=== PATIENT | male | born 1980 | race Caucasian/White ===

== ENCOUNTER 2017-02-22 09:39 | Emergency (ER) | payer BC ==
[~2017-02-22] VITALS: Ht 190.5 cm; Wt 77.8 kg
[2017-02-22 09:42] VITALS: BP 165/83; PULSE 68; TEMP 36.5; O2SAT 96; Ht 190.5 cm; Wt 77.8 kg
[2017-02-22] MEDS ORDERED: KETOROLAC TROMETHAMINE 60 MG/2 ML VIAL IM STA (09:58)
[2017-02-22] MEDS ORDERED: DEXAMETHASONE SOD INJ 10 MG/ML VIAL IM ONE (10:00)
[2017-02-22] MEDS ORDERED: CYCL10TA6 PO (10:01)
[2017-02-22] MEDS ORDERED: METH4PAK PO (10:01)
[2017-02-22] MEDS ORDERED: OXYC1TAB3 PO (10:01)
[2017-02-22] MEDS ORDERED: ZNTT/150 PO (10:13)
--- NOTE | 2017-02-22 10:42 | EMERGENCY ROOM VISIT NOTE ---
History First contact with patient: 09:45 Chief Complaint: BACK PAIN Stated Complaint: SEVERE LOWER BACK PAIN History of Present Illness The patient is a 36 year old male who presents to the Emergency Room with complaints of persistent lower back pain radiating into the left buttock and around the front of the left hip. The patient reports that he injured his back 1 week ago on a row machine. The patient does not believe that he twisted his back. The patient has had persistent pain since that time. 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 He also has several young children at home, and is very "physical" with them, wrestling frequently. The patient denies any pain extending into the thigh or leg. He denies any bladder/bowel problems, saddle anesthesias or lower extremity weakness. The patient reports that he has had a prior history of lower back problems, and has undergone physical therapy at [facility]. The patient denies any recent trauma to his back. He rates his discomfort a 7 out of 10. He has been trying NSAIDs and Tylenol without relief. Review of Systems 10 system review was performed and was negative except for pertinent positives and negatives as indicated in history of present illness Past Medical/Surgical History Medical Problems: (1) No significant past medical history Surgical Problems: (1) No history of previous surgery Family History Unremarkable Social History Smoking Status: Never Smoker Alcohol Use: occasionally Marital Status: Housing Status: lives with family Occupation Status: employed Current/Historical Medications Scheduled Cyclobenzaprine Hcl (Flexeril), 10 MG PO TID Methylprednisolone (Medrol Dosepak), 0 PO DAILY Ranitidine (Zantac), 150 MG PO Q2D Scheduled PRN Oxycodone Ir (Roxicodone Ir), 1-2 TAB PO Q4H PRN for Pain Allergies Coded Allergies: No Known Allergies (Unverified , 02/22/17) Physical Exam Vital Signs Date Time Temp Pulse Resp B/P Pulse Ox O2 Delivery O2 Flow Rate FiO2 02/22/17 09:42 36.5 68 20 165/83 96 Room Air Physical Exam CONSTITUTIONAL: Healthy and well nourished. Alert and oriented X 3 with positive affect. Patient appears in mild distress. HEENT: Normocephalic, atraumatic. Pupils equal, round and reactive. NECK: Full active range of motion without discomfort. RESPIRATORY: Clear to auscultation bilaterally with no wheezing, crackles, rhonchi or stridor. CARDIOVASCULAR: Regular rate and rhythm with no murmurs, rubs or gallops. GASTROINTESTINAL: Bowel sounds present in all quadrants. Soft and nontender to palpation. MUSCULOSKELETAL: Examination shows focal tenderness to palpation and mild rigidity of the left lumbar paraspinous muscle. He also has mild tenderness to the left SI joint. Negative logroll. Negative sitting straight leg raise. Pedal pulses are intact. INTEGUMENTARY: No rash or other significant dermatologic conditions noted. NEUROLOGIC: No focal neurologic deficits noted. Lower extremity deep tendon reflexes are 2+ and symmetric bilaterally. Medical Decision & Procedures Medications Administered Medications (Trade) Dose Ordered Sig/Kaylah Route Start Time Stop Time Status Last Admin Dose Admin Ketorolac Tromethamine (Toradol Inj) 60 mg NOW STAT IM 02/22/17 09:58 02/22/17 09:59 DC 02/22/17 10:09 60 MG Dexamethasone Sodium Phosphate (Decadron Inj) 10 mg NOW ONCE IM 02/22/17 10:00 02/22/17 10:01 DC 02/22/17 10:09 10 MG ED Course Patient history and physical exam were performed. Nurse's notes were reviewed. Vital signs were reviewed and were normal. The patient was administered Toradol 60 mg and Decadron 10 mg IM. The patient was provided prescriptions for a Medrol Dosepak, Flexeril and OxyIR 5 mg. He was encouraged to alternate ibuprofen and Tylenol for baseline pain relief. Encourage the patient to contact [facility] for further reevaluation and management, which will likely involve some physical therapy. The patient was instructed to return to the emergency department for any progressively worsening symptoms. The patient was happy with plan of care, voiced understanding of all discharge instructions, and rated his pain a 5 out of 10 at the conclusion of my exam. Medical Decision Impression Primary Impression: Left lumbar radiculitis Departure Information Dispostion Home / Self-Care Prescriptions Methylprednisolone (MEDROL DOSEPAK) 4 Mg Sj 0 PO DAILY, #1 PKT Prov: Micah Salcedo PA 02/22/17 Oxycodone Ir (Roxicodone Ir) 5 Mg Tab 1-2 TAB PO Q4H Y for Pain, #15 TAB For Initial Treatment Prov: Micah Salcedo PA 02/22/17 Cyclobenzaprine Hcl (FLEXERIL) 10 Mg Tab 10 MG PO TID for spasm, #15 TAB Prov: Micah Salcedo PA 02/22/17 Forms HOME CARE DOCUMENTATION FORM, IMPORTANT VISIT INFORMATION Patient Instructions [facility] Additional Instructions Intermittently apply heat to back. Avoid heavy lifting or sitting for long periods of time. Ibuprofen 800 mg and/or Tylenol 1000 mg every 8 hours. You may also alternate these medications for more effective pain relief: Ibuprofen --4 HRS--> Tylenol --4 HRS--> ibuprofen --4 HRS--> Tylenol .... Take Medrol Dosepak as prescribed, next dose tomorrow morning. Take Flexeril as needed for muscle tightness/spasm. OxyIR if needed for worse pain. Do not drink alcohol or drive while taking Flexeril or OxyIR. Suggest follow-up with [facility] for further reevaluation - call for an appointment.
== END 2017-02-22 10:50 | disposition home or self-care (01) ==
LOC: C.EDB 09:40
DX: M54.16 Radiculopathy, lumbar region (principal)

== ENCOUNTER 2023-05-26 17:23 | Observation (INO) ==
[2023-05-26] MEDS ORDERED: SODIUM CHLORIDE 0.9% 1000ML 1,000 ML IV STA (17:41)
[2023-05-26] MEDS ORDERED: SODIUM CHLORIDE 0.9% 1000ML 1,000 ML IV ONE (17:41)
[2023-05-26] MEDS ORDERED: IOVERSOL 350 MG 125mL Prefilled Syringe IV ONE (17:54)
[2023-05-26] MEDS ORDERED: ONDANSETRON INJ 2 MG/ML 2 ML VIAL IV STA (17:57)
[2023-05-26] MEDS ORDERED: LORazepam 2 MG/1 ML VIAL IV STA (17:57)
[2023-05-26] MEDS ORDERED: LORazepam 2 MG/1 ML VIAL ONE (18:00)
[2023-05-26] MEDS ORDERED: ONDANSETRON INJ 2 MG/ML 2 ML VIAL ONE (18:00)
[2023-05-26 18:01] LABS: iSTAT Hemoglobin 12.9 g/dl (14.0-18.0); iSTAT Ionized Calcium 1.14 mmol/l (1.12-1.32); iSTAT Potassium 3.4 mmol/L (3.3-5.0)
--- NOTE | 2023-05-26 18:10 | XRay Report ---
XR chest 1V portable HISTORY: Chest pain, nonspecific COMPARISON: Chest 08/09/2020. FINDINGS: The lungs are clear. Cardiac silhouette is normal in size. No pleural effusions. No pneumot horax. IMPRESSION: No acute process. ACT 112: Negative or not required by law. Electronically signed by: Todd Mullins M.D. 05/26/2023 6:08 PM
[2023-05-26 18:13] LABS: Hematocrit (blood only) 37.1 % (42.0-52.0); Hemoglobin 13.5 g/dl (14.0-18.0); Mean Corpuscular Hemoglobin 33.2 pg (25.0-34.0); Mean Corpuscular Hgb Conc 36.4 g/dL (32.0-36.0); Mean Corpuscular Volume 91.2 fL (80.0-100.0); Mean Platelet Volume 10.2 fL (9.4-12.4); Platelet Count 253 K/uL (130-400); RDW Coefficient of Variation 12.9 % (11.5-14.5); RDW Standard Deviation 42.5 fL (36.4-46.3); Red Blood Count 4.07 M/uL (4.70-6.10); White Blood Count 5.85 K/ul (4.8-10.8)
--- NOTE | 2023-05-26 18:16 | CT Scan Report ---
HEAD CT NONCONTRAST CT DOSE: HISTORY: syncope urinary incontinence TECHNIQUE: Multiaxial CT images of the head were performed without the use of intravenous contrast. A utomated exposure control was utilized for this study. A dose lowering technique was utilized adheri ng to the principles of ALARA. Comparison: None. Findings: The paranasal sinuses and mastoid air cells are clear. The calvarium and skull base are int act. The ventricles and sulci are within normal limits. There is no mass, hematoma, midline shift, or acute infarct. Impression: No acute intracranial abnormality. ACT 112: Negative or not required by law. Electronically signed by: Todd Mullins M.D. 05/26/2023 6:15 PM
--- NOTE | 2023-05-26 18:22 | CT Scan Report ---
CHEST CTA for AORTIC DISSECTION CT DOSE: HISTORY: ro dissection chest pain radiating to back TECHNIQUE: Multiaxial CT images of the chest were performed both before and after the intravenous adm inistration of contrast to evaluate the aorta. 3D/MIP images were also obtained. Sagittal and coronal reformations were also reviewed. A dose lowering technique was utilized adhering to the principles of ALARA. COMPARISON STUDY: None. FINDINGS: Noncontrast imaging through the chest shows no evidence for an intramural hematoma within t he thoracic aorta. The thoracic aorta is normal and course and caliber with no evidence for a dissect ion. The central pulmonary arteries are patent. The thyroid gland enhances normally. Normal esophagus . No mediastinal hematoma. No mediastinal or hilar lymphadenopathy. No pleural or pericardial effusio ns. No acute fractures identified. The central airways are patent. No pneumothorax. The lungs are marielena ar. The abdominal structures will be reported on the same day abdomen and pelvis CT. IMPRESSION: No evidence for an aortic dissection. ACT 112: Negative or not required by law. Electronically signed by: Todd Mullins M.D. 05/26/2023 6:20 PM
[2023-05-26 18:25] LABS: Albumin Globulin Ratio 1.9 (0.9-2); Albumin Level 4.6 gm/dl (3.4-5.0); BUN Creatinine Ratio 14.6 (10-20); Calcium 9.1 mg/dl (8.6-10.3); Creatinine Clr Calc Pharmacy 117.9 ml/min; Est GFR (African American) 122.2 ml/min; Est GFR (Non-African American) 105.5 ml/min; Globulin 2.4 gm/dl (2.5-4.0); Potassium 3.5 mmol/L (3.5-5.1)
--- NOTE | 2023-05-26 18:29 | CT Scan Report ---
CT angio abdomen pelvis w con CT DOSE: 2606.89 mGy.cm CLINICAL HISTORY: ro dissection chest pain and abdominal pain radiating to back TECHNIQUE: Multiaxial CT images of the abdomen and pelvis were performed following the intravenous ad ministration of 115 cc of Optiray 350 to evaluate the major arterial structures. 3-D/MIP images with sagittal coronal reformations were performed at the workstation by the radiologist for the CTA portio n of the examination. A dose lowering technique was utilized adhering to the principles of ALARA. COMPARISON STUDY: None. FINDINGS: CTA: No evidence for an aortic dissection or aneurysm. The iliac arteries and visualized femoral [place] deann are widely patent. The celiac, superior mesenteric, inferior mesenteric, and renal arteries are widely patent. There are 2 right renal arteries. Incidental note is made of a replaced right hepatic artery extending from the superior mesenteric artery. This is considered to be a normal variant. CT: No pneumoperitoneum. No pneumatosis. No acute fractures identified. There is a 6 mm hypervascular focus within the right hepatic lobe inferiorly on image 217. This is technically too small to charac terize but favors a flash filling hemangioma. The gallbladder, pancreas, spleen, adrenal glands, and kidneys are unremarkable. No hydronephrosis. No retroperitoneal lymphadenopathy. No pelvic lymphadeno vinny or pelvic free fluid. The bladder is unremarkable. No bowel wall thickening or obstruction. Nor mal appendix. IMPRESSION: No evidence for an abdominal aortic dissection or aneurysm. ACT 112: Negative or not required by law. Electronically signed by: Todd Mullins M.D. 05/26/2023 6:27 PM
[2023-05-26 18:31] LABS: Troponin I High Sensitivity 3.9 pg/ml (0-20)
[2023-05-26 18:34] LABS: INR 1.1 (0.9-1.1); Partial Thromboplastin Ratio 0.8; Partial Thromboplastin Time 22.8 Seconds (21.0-31.0); Prothrombin Time 12.2 Seconds (9.0-12.0)
[2023-05-26 19:04] LABS: Basophils # (auto) 0.07 K/uL (0-0.2); Basophils % (auto) 1.2 %; Eosinophils % (auto) 1.7 %; Immature Granulocytes # (auto) 0.01 K/uL (0.01-0.20); Immature Granulocytes % (auto) 0.2 %; Lymphocytes # (auto) 3.18 K/uL (1.2-3.4); Lymphocytes % (auto) 54.4 %; Monocytes # (auto) 0.47 K/uL (0.11-0.59); Neutrophils # (auto) 2.02 K/uL (1.40-6.50); Neutrophils % (auto) 34.5 %
--- NOTE | 2023-05-26 19:04 | Emergency Department Note ---
History of Present Illness General Chief complaint: Syncope Stated complaint: LOSS CONSCIOUSNESS,DILATED PUPILS Time Seen by Provider: 05/26/23 17:35 History of Present Illness Provider complaint: Chest pain syncope Onset (ago): hour(s) less than 1 Maximum Pain Intensity: 5 42-year-old male presents emergency department for chest pain and syncope. Patient reports he had a very stressful day at work today and states he was riding his bike home when he suddenly felt left sided chest pain that was radiating to his back. He reported was very sharp. Patient reports he got off of his bike and called his to come pick him up. is at bedside and stated when she got the patient into the car his eyes became dilated and leaned back and he was unresponsive. She reports he was very pale. She reports he urinated on himself. Patient reports no history of seizures. No other medical problems. No drugs or alcohol. Home Medications Medication Instructions Recorded Confirmed Type multivitamin 1 tab PO DAILY 08/09/20 05/26/23 History Allergies Allergy/AdvReac Type Severity Reaction Status Date / Time No Known Allergies Allergy Verified 05/26/23 18:37 Past Med/Surg History Medical History Acid reflux Bronchospastic airway disease Lipoma Spermatocele Surgical History No pertinent past surgical history Family History Father Unknown family medical history Mother Unknown family medical history Grandfather (Paternal) Colorectal cancer Family/Other No problems noted. Aunt Breast cancer Uncle Testicular cancer Grandfather Bladder cancer Social History Smoking Status: Never smoker Hx Alcohol Use: Yes Hx Substance Use: No Preferred Language: Welsh marital status: Current Living Situation: Family Current Living Situation Comment: 3 children current occupational status: employed current occupation: [employer] works in [employer] Feels Safe at Home: Yes Childhood Exposure to Second-Hand Smoke: No Dental Care, Regularly: Yes Physical Activity Frequency: 5-6 Times per Week Physical Exam Vital Signs Vital Signs - 24 hr 05/26/23 17:25 05/26/23 17:46 Temperature 36.6 C Temperature Source Oral Pulse Rate 70 70 Pulse Rhythm Regular Pulse Strength Normal Respiratory Rate 20 Respiratory Effort / Characteristics Non-Labored Spontaneous Respiratory Depth Normal Respiratory Pattern Regular Blood Pressure 123/69 Blood Pressure Mean 87 Blood Pressure Position Sitting Pulse Oximetry 98 Oxygen Delivery Method Room Air Sepsis Recent Fever Within 48 Hours No Sepsis New/Unexplained Change in Mental Status No Sepsis Action Taken by Nursing No Action Required Physical Exam GENERAL: Patient in urine soaked pants. HENT: Exam performed. - Head: Normocephalic and atraumatic. - Right Ear: External ear normal. No mastoid erythema - Left Ear: External ear normal. No mastoid erythema - Mouth/Throat: The oropharynx is clear and moist. No trismus in the jaw. No dental abscesses or uvula swelling. No oropharyngeal exudate or tonsillar abscesses. EYES: Conjunctivae and EOM are normal. Pupils are equal, round, and reactive to light. Right eye exhibits no discharge. Left eye exhibits no discharge. No scleral icterus. NECK: Normal range of motion. Neck supple. No JVD present. No spinous process tenderness present. No carotid bruit present. No rigidity. No tracheal deviation and normal range of motion present. No Brudzinski's sign and no Kernig's sign noted. CV: Normal rate, regular rhythm, normal heart sounds and intact distal pulses. There is no peripheral edema. Palpable radial pulses bue. PULM/CHEST: Effort normal and breath sounds normal. No respiratory distress. No stridor. He has no wheezes. He has no rales. - Chest Wall: He exhibits no tenderness. ABD: The abdomen is soft.There is no tenderness. There is no rebound, no guarding MUSC/SKEL: Normal range of motion. There is no peripheral edema, tenderness or deformity. NEURO: He is alert and oriented to person, place, and time. He has normal strength. No cranial nerve deficit or sensory deficit. Coordination and gait normal. GCS eye subscore is 4. GCS verbal subscore is 5. GCS motor subscore is 6. Cerebellar tests wnl. Course Course 173: The patient was evaluated in room C4. A complete history and physical exam was performed Cardiac monitoring: An order was placed for continuous cardiac monitoring. The monitor shows a rate of 70 with sinus rhythm interpreted by me 1933: Vital signs stable. Labs and imaging within normal limits. Patient states he feels much better after receiving IV Zofran and IV Ativan. Discussed the case with Dr. Singer on-call neurology. Expressed my concerns about exertional syncope versus seizure. He states he thinks this more syncope and recommends no antiepileptics at this time. Patient will be brought into the [facility] hospitalist team for observation and evaluation by cardiology and neurology. Dr. Covarrubias is aware of the patient and will evaluate the patient for admission. Administered Medications Discontinued Medications Sodium Chloride (Nss 1000ml) 1,000 mls @ 999 mls/hr IV .Q1H1M STA Stop: 05/26/23 18:41 Last Admin: 05/26/23 19:15 Dose: 999 mls/hr Documented By: SOLA Sodium Chloride (Nss 1000ml) 1,000 mls @ 999 mls/hr IV .Q1H1M ONE Stop: 05/26/23 18:41 Last Admin: 05/26/23 19:16 Dose: 999 mls/hr Documented By: SOLA Ioversol (Ioversol 350 Mg 125ml Prefilled Syringe) 115 ml IV ONCE ONE Stop: 05/26/23 17:55 Last Admin: 05/26/23 17:54 Dose: 115 ml Documented By: JAYCEE Lorazepam (Lorazepam 2 Mg/1 Ml Vial) 1 mg IV NOW STA Stop: 05/26/23 17:58 Last Admin: 05/26/23 18:16 Dose: 1 mg Documented By: SOLA Lorazepam (Lorazepam 2 Mg/1 Ml Vial) Confirm Administered Dose 2 mg .ROUTE .STK- MED ONE Stop: 05/26/23 18:01 Last Admin: 05/26/23 19:14 Dose: Not Given Documented By: SOLA Ondansetron HCl (Ondansetron Inj 2 Mg/Ml 2 Ml Vial) 4 mg IV NOW STA Stop: 05/26/23 17:58 Last Admin: 05/26/23 18:16 Dose: 4 mg Documented By: SOLA Ondansetron HCl (Ondansetron Inj 2 Mg/Ml 2 Ml Vial) Confirm Administered Dose 4 mg .ROUTE .STK-MED ONE Stop: 05/26/23 18:01 Last Admin: 05/26/23 19:15 Dose: Not Given Documented By: SOLA Medical Decision Making Laboratory Data Attestation: I reviewed the patient's lab results. 05/26/23 17:33 05/26/23 17:33 Lab Results 05/26/23 05/26/23 05/26/23 Range/Units 17:33 17:33 17:33 WBC 5.85 (4.8-10.8) K/ul RBC 4.07 L (4.70-6.10) M/uL Hgb 13.5 L (14.0-18.0) g/dl POC Hgb (14.0-18.0) g/dl Hct 37.1 L (42.0-52.0) % POC Hct (42-52) % MCV 91.2 (80.0-100.0) fL MCH 33.2 (25.0-34.0) pg MCHC 36.4 H (32.0-36.0) g/dL RDW Std Deviation 42.5 (36.4-46.3) fL RDW Coeff of [place] 12.9 (11.5-14.5) % Plt Count 253 (130-400) K/uL MPV 10.2 (9.4-12.4) fL Immature Gran % (Auto) 0.2 % Neut % (Auto) 34.5 % Lymph % (Auto) 54.4 % [place] % (Auto) 8.0 % Eos % (Auto) 1.7 % Baso % (Auto) 1.2 % Neut # (Auto) 2.02 (1.40-6.50) K/uL Lymph # (Auto) 3.18 (1.2-3.4) K/uL [place] # (Auto) 0.47 (0.11-0.59) K/uL Eos # (Auto) 0.10 (0-0.50) K/uL Baso # (Auto) 0.07 (0-0.2) K/uL Immature Gran # (Auto) 0.01 (0.01-0.20) K/uL PT 12.2 H (9.0-12.0) Seconds INR 1.1 (0.9-1.1) APTT 22.8 (21.0-31.0) Seconds PTT Ratio 0.8 POC Sodium (135-144) mmol/L Sodium 137 (136-145) mmol/L POC Potassium (3.3-5.0) mmol/L Potassium 3.5 (3.5-5.1) mmol/L POC Chloride (101-112) mmol/L Chloride 104 (98-107) mmol/L Carbon Dioxide 26 (21-32) mmol/L POC Total CO2 (24-31) mmol/L Anion Gap 7 (3-11) POC Anion Gap (16-25) mmol/L POC BUN (7-18) mg/dl BUN 13 (6-23) mg/dl Creatinine 0.89 (0.6-1.4) mg/dl POC Creatinine (0.6-1.3) mg/dl Est Cr Clr Drug Dosing 117.9 ml/min Est GFR ( Amer) 122.2 ml/min Est GFR (Non-Af Amer) 105.5 ml/min BUN/Creatinine Ratio 14.6 (10-20) Glucose 103 H (70-99(Fasting)) mg/dl POC Glucose (70-99) mg/dl POC Glucose (other) (70-99) mg/dl Calcium 9.1 (8.6-10.3) mg/dl POC Ioniz Calcium Adrian (1.12-1.32) mmol/l Total Bilirubin 1.0 (0.2-1.0) mg/dl AST 26 (13-39) U/L ALT 19 (7-52) U/L Alkaline Phosphatase 42 (34-104) U/L Troponin I High Sens 3.9 (0-20) pg/ml Total Protein 7.0 (6.0-8.3) gm/dl Albumin 4.6 (3.4-5.0) gm/dl Globulin 2.4 L (2.5-4.0) gm/dl Albumin/Globulin Ratio 1.9 (0.9-2) Lipase 25 (11-82) U/L 05/26/23 05/26/23 Range/Units 17:33 17:45 WBC (4.8-10.8) K/ul RBC (4.70-6.10) M/uL Hgb (14.0-18.0) g/dl POC Hgb 12.9 L (14.0-18.0) g/dl Hct (42.0-52.0) % POC Hct 38 L (42-52) % MCV (80.0-100.0) fL MCH (25.0-34.0) pg MCHC (32.0-36.0) g/dL RDW Std Deviation (36.4-46.3) fL RDW Coeff of [place] (11.5-14.5) % Plt Count (130-400) K/uL MPV (9.4-12.4) fL Immature Gran % (Auto) % Neut % (Auto) % Lymph % (Auto) % [place] % (Auto) % Eos % (Auto) % Baso % (Auto) % Neut # (Auto) (1.40-6.50) K/uL Lymph # (Auto) (1.2-3.4) K/uL [place] # (Auto) (0.11-0.59) K/uL Eos # (Auto) (0-0.50) K/uL Baso # (Auto) (0-0.2) K/uL Immature Gran # (Auto) (0.01-0.20) K/uL PT (9.0-12.0) Seconds INR (0.9-1.1) APTT (21.0-31.0) Seconds PTT Ratio POC Sodium 139 (135-144) mmol/L Sodium (136-145) mmol/L POC Potassium 3.4 (3.3-5.0) mmol/L Potassium (3.5-5.1) mmol/L POC Chloride 102 (101-112) mmol/L Chloride (98-107) mmol/L Carbon Dioxide (21-32) mmol/L POC Total CO2 24 (24-31) mmol/L Anion Gap (3-11) POC Anion Gap 16.0 (16-25) mmol/L POC BUN 12 (7-18) mg/dl BUN (6-23) mg/dl Creatinine (0.6-1.4) mg/dl POC Creatinine 1.0 (0.6-1.3) mg/dl Est Cr Clr Drug Dosing ml/min Est GFR ( Amer) ml/min Est GFR (Non-Af Amer) ml/min BUN/Creatinine Ratio (10-20) Glucose (70-99(Fasting)) mg/dl POC Glucose 109 H (70-99) mg/dl POC Glucose (other) 104 H (70-99) mg/dl Calcium (8.6-10.3) mg/dl POC Ioniz Calcium Adrian 1.14 (1.12-1.32) mmol/l Total Bilirubin (0.2-1.0) mg/dl AST (13-39) U/L ALT (7-52) U/L Alkaline Phosphatase (34-104) U/L Troponin I High Sens (0-20) pg/ml Total Protein (6.0-8.3) gm/dl Albumin (3.4-5.0) gm/dl Globulin (2.5-4.0) gm/dl Albumin/Globulin Ratio (0.9-2) Lipase (11-82) U/L Imaging Data Attestation: I personally reviewed and interpreted this imaging study as follows: My Impression: Chest x-ray: Chest x-ray negative. Airway clear. No pneumothorax. No consolidation. No cardiomegaly or cephalization.. No free air under the diaphragm. No fractures of the skeletal structures. CT head: No ICH CTA chest abdomen pelvis: No dissection. Radiologist's Impression: Chest X-Ray 05/26/23 17:41 XR chest 1V portable HISTORY: Chest pain, nonspecific COMPARISON: Chest 08/09/2020. FINDINGS: The lungs are clear. Cardiac silhouette is normal in size. No pleural effusions. No pneumothorax. IMPRESSION: No acute process. ACT 112: Negative or not required by law. Electronically signed by: Todd Mullins M.D. 05/26/2023 6:08 PM Abdomen/Pelvis CTA 05/26/23 17:42 CT angio abdomen pelvis w con CT DOSE: 2606.89 mGy.cm CLINICAL HISTORY: ro dissection chest pain and abdominal pain radiating to back TECHNIQUE: Multiaxial CT images of the abdomen and pelvis were performed following the intravenous administration of 115 cc of Optiray 350 to evaluate the major arterial structures. 3-D/MIP images with sagittal coronal reformations were performed at the workstation by the radiologist for the CTA portion of the examination. A dose lowering technique was utilized adhering to the principles of ALARA. COMPARISON STUDY: None. FINDINGS: CTA: No evidence for an aortic dissection or aneurysm. The iliac arteries and visualized femoral arteries are widely patent. The celiac, superior mesenteric, inferior mesenteric, and renal arteries are widely patent. There are 2 right renal arteries. Incidental note is made of a replaced right hepatic artery extending from the superior mesenteric artery. This is considered to be a normal variant. CT: No pneumoperitoneum. No pneumatosis. No acute fractures identified. There is a 6 mm hypervascular focus within the right hepatic lobe inferiorly on image 217. This is technically too small to characterize but favors a flash filling hemangioma. The gallbladder, pancreas, spleen, adrenal glands, and kidneys are unremarkable. No hydronephrosis. No retroperitoneal lymphadenopathy. No pelvic lymphadenopathy or pelvic free fluid. The bladder is unremarkable. No bowel wall thickening or obstruction. Normal appendix. IMPRESSION: No evidence for an abdominal aortic dissection or aneurysm. ACT 112: Negative or not required by law. Electronically signed by: Todd Mullins M.D. 05/26/2023 6:27 PM Chest CTA 05/26/23 17:42 CHEST CTA for AORTIC DISSECTION CT DOSE: HISTORY: ro dissection chest pain radiating to back TECHNIQUE: Multiaxial CT images of the chest were performed both before and after the intravenous administration of contrast to evaluate the aorta. 3D/MIP images were also obtained. Sagittal and coronal reformations were also reviewed. A dose lowering technique was utilized adhering to the principles of ALARA. COMPARISON STUDY: None. FINDINGS: Noncontrast imaging through the chest shows no evidence for an intramural hematoma within the thoracic aorta. The thoracic aorta is normal and course and caliber with no evidence for a dissection. The central pulmonary arteries are patent. The thyroid gland enhances normally. Normal esophagus. No mediastinal hematoma. No mediastinal or hilar lymphadenopathy. No pleural or pericardial effusions. No acute fractures identified. The central airways are patent. No pneumothorax. The lungs are clear. The abdominal structures will be reported on the same day abdomen and pelvis CT. IMPRESSION: No evidence for an aortic dissection. ACT 112: Negative or not required by law. Electronically signed by: Todd Mullnis M.D. 05/26/2023 6:[address] 05/26/23 17:[address] DOSE: HISTORY: syncope urinary incontinence TECHNIQUE: Multiaxial CT images of the head were performed without the use of intravenous contrast. Automated exposure control was utilized for this study. A dose lowering technique was utilized adhering to the principles of ALARA. Comparison: None. Findings: The paranasal sinuses and mastoid air cells are clear. The calvarium and skull base are intact. The ventricles and sulci are within normal limits. There is no mass, hematoma, midline shift, or acute infarct. Impression: No acute intracranial abnormality. ACT 112: Negative or not required by law. Electronically signed by: Todd Mullins M.D. 05/26/2023 6:15 PM ECG Data Attestation: I personally reviewed and interpreted this ECG as follows: Additional Comments: EKG 1 at 1735: Sinus rhythm with rate of 73. MN QRS and QTc intervals within normal limits. No ST elevation or ST depression. EKG #2 at 1749: Sinus rhythm with a rate of 63. MN QRS and QTc interval's are within normal limits. No ST elevation or ST depression. EKG #3 at 1812: Sinus rhythm with a sinus arrhythmia with a rate of 62. MN QRS and QTc intervals within normal limits. No ST elevation or ST depression MDM Narrative 1735: The patient was evaluated in room C4. A complete history and physical exam was performed Cardiac monitoring: An order was placed for continuous cardiac monitoring. The monitor shows a rate of 70 with sinus rhythm interpreted by me 1933: Vital signs stable. Labs and imaging within normal limits. Patient states he feels much better after receiving IV Zofran and IV Ativan. Discussed the case with Dr. Singer on-call neurology. Expressed my concerns about exertiona l syncope versus seizure. He states he thinks this more syncope and recommends no antiepileptics at this time. Patient will be brought into the [facility] hospitalist team for observation and evaluation by cardiology and neurology. Dr. Covarrubias is aware of the patient and will evaluate the patient for admission. Impression & Plan Syncope, Seizure-like activity Discharge Plan Visit Data Chief Complaint: Syncope Stated Complaint: LOSS CONSCIOUSNESS,DILATED PUPILS ED Provider: Jayme Mckinley Discharge Problem: Syncope, Seizure-like activity Patient Disposition: Being Evaluated by Hospitalist Forms Stand Alone Forms: My [facility] Prescriptions Prescriptions: No Action multivitamin Tablet 1 tab PO DAILY Referrals Referrals: Silvia Padgett MD [Primary Care Provider] -
--- NOTE | 2023-05-26 19:35 | History & Physical Report ---
Date of Service May 26, 2023 Assessment & Plan (1) Syncope: Plan: Patient is a 42-year-old male with no significant past medical history who presents to the hospital for syncopal episode. Initial test are negative at time of admission. ED provider spoke to neurology who states that unlikely to be seizure like activity. Etiology of syncopal episode most likely either vasovagal/anxiety versus cardiac abnormality such as HOCM, bicuspid aortic valve, arrhythmia. Patient unsure of exact family history of cardiac issues though states that his father "dropped " from a heart issue in his 40s/50s. We will hold off on neurology consult at this time, may consider consult in the future though unlikely to be related to seizures. Chest x-ray, CT abdomen pelvis, CTA chest, head CT, CBC, CMP, and lipase all negative. UA and drug profile urine pending at time of admission. Troponin negative x1, will repeat in 6 hours. Status post 2 L NSS in ED. received 1 mg Ativan in the ED which helped. TTE ordered Will monitor on telemetry If tests all negative, consider event monitor at time of discharge Plan Fluids: Received 2 L NSS in ED, will hold further fluids at this time Nutrition: Heart Code status: full code DVT ppx: none Consults: None Dispo: PCU/telemetry Thank you for allowing me to participate in the care of your patient. -Dr. Pieter Peña PGY2 History of Present Illness Chief Complaint: Syncopal episode Primary Care Provider: Silvia Padgett MD Patient is a 42-year-old male without any significant past medical history who presents to the hospital for syncopal episode that occurred earlier this afternoon. Patient states that he had a very stressful day at work and was worried that he might be fired. After work he was going for a bike ride and started to have back pain that radiated to his chest on his left side. Patient states that he then became dizzy and felt like he was going to pass out. He was able to stop biking and called his to come pick him up. When his arrived patient entered the front seat and then had a syncopal episode where he lost consciousness for 15 seconds. Patient did not have any shaking or movement with loss of consciousness. After he regained consciousness he felt calm without any significant postictal state. does report that the patient was a little confused until getting to the emergency room. He did urinate himself during this loss of consciousness. Patient states that he has never had this in the past but has had presyncopal episodes that improved with putting his head in between his legs. Patient is unsure of his exact family medical history but states people in his family have had to have valve replacements or other heart surgeries and that his grandfather suddenly of a heart condition in his 40s/50s. In the ED: Chest x-ray negative, abdomen and pelvis CTA negative, chest CTA negative, head CT negative, CBC benign, CMP benign, lipase negative, negative troponin x1. EKG showed normal sinus rhythm with sinus arrhythmia unchanged from previous EKG in 2019. VSS stable. Given 2 L NSS and 1 mg Ativan which improved symptoms. Allergies Allergy/AdvReac Type Severity Reaction Status Date / Time No Known Allergies Allergy Verified 05/26/23 18:37 Home Medications Medication Instructions Recorded Confirmed Type multivitamin 1 tab PO DAILY 08/09/20 05/26/23 History Past Med/Surg History Medical History Acid reflux Bronchospastic airway disease Lipoma Spermatocele Surgical History No pertinent past surgical history Family History Father Unknown family medical history Mother Unknown family medical history Grandfather (Paternal) Colorectal cancer Family/Other No problems noted. 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 Beliefs That Will Affect Care: None marital status: Current Living Situation: Parent and Family Current Living Situation Comment: 3 children current occupational status: employed current occupation: [employer] works in [employer] Other Information That Helps Us Care for You: No Feels Safe at Home: Yes Safety Concerns: Feels Safe At This Time Childhood Exposure to Second-Hand Smoke: No Dental Care, Regularly: Yes Physical Activity Frequency: 5-6 Times per Week Assistive Devices: None Review of Systems Review of Systems: All systems reviewed & are unremarkable except as noted in Subjective Physical Exam Physical Exam: Constitutional: well-appearing, no acute distress HEENT: NCAT, no conjunctival injection CV: regular rhythm, no murmur appreciated, extremities well-perfused, no LE edema Resp: CTABL, no wheezes/rales/rhonchi appreciated, no increased work of breathing GI: soft, nondistended, nontender, BS normoactive MSK: no gross deformities appreciated Skin: warm, dry, no rash appreciated Neuro: alert, oriented, no focal neurologic deficit appreciated Results & Data Results & Data Vital Signs (Past 12 Hours) Vital Signs Temp Pulse Resp BP Pulse Ox O2 Del Method 05/26/23 17:46 70 05/26/23 17:25 36.6 C 70 20 123/69 98 Room Air Supervising Physician Co-Signing Physician Notes I personally examined the patient and verified all lowe points of history and exam, discussed case, and agree with decision making with Dr. Peña with the following additions/exceptions: This patient is a 42-year-old male with no significant past medical history who presented with a syncopal episode. He had a stressful day at work and was biking home like he does 2 or 3 times a week for about [address] when he began having severe sharp stabbing pains in the suprascapular region that radiated down to the left anterior chest wall. He got off his bike and began to feel lightheaded and started to feel like he was not thinking clearly. He was able to call his who came with her car. He continued to feel lightheaded this whole time and after getting in the car then he passed out for about 15 to 20 seconds. His reports he had incontinence to urine but no shaking or tremors. He did wake up then on his own and still seemed slightly confused until he got to the ER. He has never passed out before, but reports several episodes in the past of lightheadedness that improved with time. The pain in his left shoulder and chest is completely resolved. In the ER, he had head CT, CT angiogram the chest abdomen pelvis, chest x-ray all negative, troponin negative, labs negative except mild anemia. ECGs with normal sinus rhythm with sinus arrhythmia and rate of 62 History and ROS reviewed otherwise as above Vitals reviewed Gen: AAOx3, NAD HEENT: Anicteric sclerae, EOMI CV: RRR no mgr nl S1S2 Pulm: CTAB no wcr Abd: +BS soft NT ND no masses or hernias Ext: No edema, 2+ DP pulses, left suprascapular region without tenderness to palpation Skin: No rashes, warm/dry Neuro: Full strength throughout CBC, CMP, troponin reviewed 42-year-old male here with what is likely vasovagal syncope as a response to the muscle cramp in his left shoulder. CT angiogram chest ruled out aortic dissection as a cause of the pain and is now resolved on its own. ECG is without ischemia and troponin negative-serial troponins ordered -Check echocardiogram to rule out valvular disease or HOCM given family history of sudden -Recommend cardiac event monitoring after discharge Resident Activity Tracking Resident Involvement: Resident Care Provided Care Provided: Adult Hospital Medicine (1) Syncope Syncope type: unspecified Qualified Code(s): R55 - Syncope and collapse
[2023-05-26 22:20] LABS: Appearance Urine Clear (Clear); Bilirubin Urine Negative (Negative); Blood Urine Negative (Negative); Color Urine Yellow; Glucose Urine UA Negative (Negative); Ketones Urine Trace (Negative); Leukocyte Esterase Urine Negative (Negative); Nitrite Urine Negative (Negative); Protein Urine Negative (Negative); Specific Gravity Urine 1.013 (1.000-1.030); Urobilinogen Urine Negative (Negative); pH Urine 5.5 (4.5-7.5)
[2023-05-26 22:52] LABS: Amphetamines+Metham, Urine Neg (Neg); Barbiturates, Urine Neg (Neg); Benzodiazepine, Urine Neg (Neg); Cocaine, Urine Neg (Neg); MDMA (Ecstacy), Urine Neg (Neg); Methadone, Urine Neg (Neg); Opiate, Urine Neg (Neg); Phencyclidine, Urine Neg (Neg)
[2023-05-26] MEDS ORDERED: ACETAMINOPHEN 325 MG TAB PO PRN (22:58)
--- NOTE | 2023-05-27 07:07 | Billing Data ---
Date of Service May 26, 2023 Coding Level of Care Code 98075 INT INP/OBS CARE
[2023-05-27 07:37] LABS: BUN Creatinine Ratio 11.7 (10-20); Calcium 8.5 mg/dl (8.6-10.3); Creatinine Clr Calc Pharmacy 111.5 ml/min; Est GFR (African American) 115.4 ml/min; Est GFR (Non-African American) 99.6 ml/min
--- NOTE | 2023-05-27 08:01 | Electrocardiogram Report ---
Test Reason : Blood Pressure : / mmHG Vent. Rate : 062 BPM Atrial Rate : 062 BPM P-R Int : 168 ms QRS Dur : 096 ms QT Int : 394 ms P-R-T Axes : 077 075 065 degrees QTc Int : 399 ms Normal sinus rhythm with sinus arrhythmia Normal ECG When compared with ECG of 26-MAY-2023 17:35, No significant change was found Confirmed by Nelson Camargo ([id number]) on 05/27/2023 8:01:08 AM Referred By: REFERRED SELF Confirmed By:Nelson Camargo
--- NOTE | 2023-05-27 08:01 | Electrocardiogram Report ---
Test Reason : Blood Pressure : / mmHG Vent. Rate : 073 BPM Atrial Rate : 073 BPM P-R Int : 148 ms QRS Dur : 094 ms QT Int : 360 ms P-R-T Axes : 081 082 076 degrees QTc Int : 396 ms Poor data quality, interpretation may be adversely affected Normal sinus rhythm with sinus arrhythmia Left atrial enlargement Abnormal ECG When compared with ECG of 09-AUG-2020 22:41, No significant change was found Confirmed by Nelson Camargo ([id number]) on 05/27/2023 8:00:51 AM Referred By: REFERRED SELF Confirmed By:Nelson Camargo
--- NOTE | 2023-05-27 08:30 | XCELERA ---
[id number] \\[id number]___[id number]
--- NOTE | 2023-05-27 08:46 | Electrocardiogram Report ---
Test Reason : Blood Pressure : / mmHG Vent. Rate : 060 BPM Atrial Rate : 060 BPM P-R Int : 150 ms QRS Dur : 094 ms QT Int : 386 ms P-R-T Axes : 076 078 067 degrees QTc Int : 386 ms Normal sinus rhythm Normal ECG When compared with ECG of 26-MAY-2023 18:12, No significant change was found Confirmed by Nelson Camargo ([id number]) on 05/27/2023 8:46:02 AM Referred By: REFERRED SELF Confirmed By:Nelson Camargo
[2023-05-27 09:30] LABS: Hematocrit (blood only) 36.2 % (42.0-52.0); Hemoglobin 12.7 g/dl (14.0-18.0); Mean Corpuscular Hemoglobin 32.4 pg (25.0-34.0); Mean Corpuscular Hgb Conc 35.1 g/dL (32.0-36.0); Mean Corpuscular Volume 92.3 fL (80.0-100.0); Mean Platelet Volume 10.2 fL (9.4-12.4); Platelet Count 207 K/uL (130-400); RDW Standard Deviation 43.8 fL (36.4-46.3); Red Blood Count 3.92 M/uL (4.70-6.10); White Blood Count 5.83 K/ul (4.8-10.8)
--- NOTE | 2023-05-27 10:25 | Electrocardiogram Report ---
Test Reason : Blood Pressure : / mmHG Vent. Rate : 063 BPM Atrial Rate : 063 BPM P-R Int : 158 ms QRS Dur : 096 ms QT Int : 380 ms P-R-T Axes : 077 078 068 degrees QTc Int : 388 ms Normal sinus rhythm with sinus arrhythmia Normal ECG When compared with ECG of 26-MAY-2023 17:35, No significant change was found Confirmed by Nelson Camargo ([id number]) on 05/27/2023 10:24:59 AM Referred By: REFERRED SELF Confirmed By:Nelson Camargo
--- NOTE | 2023-05-27 13:56 | Discharge Summary ---
Date of Service May 27, 2023 Admission HPI Per Admitting Provider Patient is a 42-year-old male without any significant past medical history who presents to the hospital for syncopal episode that occurred earlier this afternoon. Patient states that he had a very stressful day at work and was worried that he might be fired. After work he was going for a bike ride and started to have back pain that radiated to his chest on his left side. Patient states that he then became dizzy and felt like he was going to pass out. He was able to stop biking and called his to come pick him up. When his arrived patient entered the front seat and then had a syncopal episode where he lost consciousness for 15 seconds. Patient did not have any shaking or movement with loss of consciousness. After he regained consciousness he felt calm without any significant postictal state. does report that the patient was a little confused until getting to the emergency room. He did urinate himself during this loss of consciousness. Patient states that he has never had this in the past but has had presyncopal episodes that improved with putting his head in between his legs. Patient is unsure of his exact family medical history but states people in his family have had to have valve replacements or other heart surgeries and that his grandfather suddenly of a heart condition in his 40s/50s. In the ED: Chest x-ray negative, abdomen and pelvis CTA negative, chest CTA neg ative, head CT negative, CBC benign, CMP benign, lipase negative, negative troponin x1. EKG showed normal sinus rhythm with sinus arrhythmia unchanged from previous EKG in 2019. VSS stable. Given 2 L NSS and 1 mg Ativan which improved symptoms. Principal Diagnosis syncope Discharge Exam Constitutional: well-appearing, no acute distress HEENT: NCAT, no conjunctival injection CV: regular rhythm, no murmur appreciated, extremities well-perfused, no LE edema Resp: CTABL, no wheezes/rales/rhonchi appreciated, no increased work of breathing GI: soft, nondistended, nontender, BS normoactive MSK: no gross deformities appreciated Skin: warm, dry, no rash appreciated Neuro: alert, oriented, no focal neurologic deficit appreciated Discharge Data Allergies Allergy/AdvReac Type Severity Reaction Status Date / Time No Known Allergies Allergy Verified 05/26/23 18:37 Consultations 05/26/23 19:15 ED Decision to Admit Stat Ordered Studies 05/26/23 17:42 CT angio abdomen pelvis w con Stat CT angio chest dissec wo/w con Stat CT head/brain wo con Stat Hospital Course (1) Syncope: Patient is a 42-year-old male with no significant past medical history who presents to the hospital for syncopal episode. Initial test are negative at time of admission. ED provider spoke to neurology who states that unlikely to be seizure like activity. Etiology of syncopal episode most likely either vasovagal/anxiety versus cardiac abnormality such as HOCM, bicuspid aortic valve, arrhythmia. Patient unsure of exact family history of cardiac issues though states that his father "dropped " from a heart issue in his 40s/50s. We will hold off on neurology consult at this time, may consider consult in the future though unlikely to be related to seizures. Chest x-ray, CT abdomen pelvis, CTA chest, head CT, CBC, CMP, and lipase all negative Troponin negative Status post 2 L NSS in ED. received 1 mg Ativan in the ED which helped. TTE ordered: negative likely vaso vagal. Will discharge patient on a heart monitor for 30 days. Will recommend followup with PCP in 1-2 weeks. May beenfit from cardio followup after manager monitoring is completed. Total Time Total Time Spent Total Time Spent (In Minutes): 32 Discharge Plan Discharge Items Patient Disposition: Home - Self-Care Reason For Visit: SYNCOPAL EPISODE Discharge Diagnosis: syncopal episode Activity: Resume your previous activity Non-emergency contact: Primary Care Provider Call non-emergency contact if: you have any medication questions Follow-up/Referrals: Silvia Padgett MD [Primary Care Provider] - 05/31/23 3:20 pm (Follow up scheduled on 05/31/23 @ 3:20 with Mindy Mullen) Diet: Regular Addtl Attending Provider Instructions: We will set you up with a heart monitor to monitor you for any abnormal rhythms. This will be mailed to your home or the [employer] will call you. Recommend followup with PCP in 1-2 weeks. Pending Studies at Discharge: No Stand-Alone Forms: [employer], Smoking Cessation Medications and DC Order Prescriptions: Continued multivitamin Tablet 1 tab PO DAILY Discharge Orders: Discharge Order (Routine); Ordered 05/27/23 Ordered By: Frank Boyd/Other Patient Handouts: Causes of Syncope, Diagnosing Syncope, Warning Signs of a Heart Attack Admission Data Admit Date/Time: 05/26/23 20:17 Attending Provider: Frank Jay Admit Provider: Pieter Peña Primary Care Provider: Silvia Padgett Other Providers: Philly Covarrubias Other Interventions: Discharge Summary Assessment (RN) Last Done: 05/27/23 15:21 Coding Level of Care Code 70899 INP/OBS DISCH >30 MIN Diagnoses Syncope R55 Syncope type: unspecified
== END 2023-05-27 15:53 | disposition home or self-care (01) | DRG 312 ==
LOC: ED 17:23 → SUATTDRO 20:17 → INTOOBSV 20:17 → 2S 20:17